=== PATIENT | male | born 1940 | race Caucasian/White ===

== ENCOUNTER 2023-08-27 05:47 | Emergency (ER) | payer MEDICARE, OTHER ==
[~2023-08-27] VITALS: Ht 177.8 cm; Wt 70.6 kg
[2023-08-27 07:02] VITALS: TEMP 98.4
[2023-08-27 07:42] LABS: BILIRUBIN,URINE NEGATIVE (Neg); CLARITY,URINE CLEAR (Clear); COLOR,URINE YELLOW (Yellow); GLUCOSE, URINE NEGATIVE (Neg); KETONES,URINE NEGATIVE (Neg); LEUKOCYTE ESTERASE ,URINE NEGATIVE (Neg); NITRITES, URINE NEGATIVE (Neg); OCCULT BLOOD,URINE MODERATE (Neg); PH,URINE 5.5 (4.8-8.0); PROTEIN,URINE NEGATIVE (Neg); UROBILINOGEN,URINE 0.2 E.U/dL (0.2-1.0)
[2023-08-27 07:54] LABS: UA COLLECTION TYPE STRAIGHT CATH
[2023-08-27 07:57] LABS: BACTERIA,URINE NONE SEEN /HPF (Neg); MUCUS STRANDS NONE SEEN /LPF (Neg); SQUAMOUS EPITHELIAL CELL,UR NONE SEEN /LPF (FEW); WBC,URINE 0-4 /HPF (0-4)
[2023-08-27 08:16] VITALS: BP 149/78; PULSE 88; RESP 14; O2SAT 99
[2023-08-27] MEDS ORDERED: FLO0.4C PO ×2 (21:36→22:45)
== END 2023-08-27 08:17 | disposition home or self-care (01) ==
LOC: ER 05:48
DX: N40.1 Benign prostatic hyperplasia with lower urinary tract symptoms (principal); R33.8 Other retention of urine
CPT/HCPCS: 81001; 99284; C1758

== ENCOUNTER 2023-08-27 18:35 | Emergency (ER) | payer MEDICARE, OTHER ==
[~2023-08-27] VITALS: Ht 182.9 cm; Wt 72.3 kg
[2023-08-27 18:43] VITALS: TEMP 98.5
[2023-08-27 19:45] LABS: BASOPHILS % (AUTO) 0.4 % (0-1); EOSINOPHILS # (AUTO) 0.1 X10'3 (0-0.9); EOSINOPHILS % (AUTO) 0.6 % (0-6); HEMOGLOBIN 15.6 g/dl (14.0-17.9); LYMPHOCYTES # (AUTO) 1.3 X10'3 (1.1-4.8); LYMPHOCYTES % (AUTO) 11.8 % (21-51); MEAN CORPUSCULAR HEMOGLOBIN 32.9 PG (27.0-31.0); MEAN CORPUSCULAR HGB CONC 33.9 g/dL (33.0-36.5); MEAN CORPUSCULAR VOLUME 97.2 FL (78-98); MEAN PLATELET VOLUME 8.7 FL (7.4-10.4); MONOCYTES # (AUTO) 0.8 X10'3 (0-0.9); MONOCYTES % (AUTO) 7.6 % (2-12); NEUTROPHILS # (AUTO) 8.9 X10'3 (1.8-7.7); NEUTROPHILS % (AUTO) 79.6 % (42-75); PLATELET COUNT 218 X10'3 (140-440); RED BLOOD COUNT 4.73 X10'6 (4.70-6.10); RED CELL DISTRIBUTION WIDTH 13.3 % (11.5-14.5); WHITE BLOOD COUNT 11.2 X10'3 (4.5-11.0)
[2023-08-27 19:55] LABS: APTT 24 SECONDS (22-32)
[2023-08-27 19:57] LABS: ALANINE AMINOTRANSFERASE 27 U/L (12-78); ALBUMIN 4.5 G/DL (3.4-5.0); ALBUMIN/GLOBULIN RATIO 1.5 (1.1-1.5); ALKALINE PHOSPHATASE 77 IU/L (46-116); ANION GAP 7 (8-16); ASPARTATE AMINO TRANSFERASE 21 U/L (10-37); BILIRUBIN,TOTAL 1.4 MG/DL (0.1-1.0); BLOOD UREA NITROGEN 18 MG/DL (7-18); BUN/CREATININE RATIO 14.6 (10.0-20.0); CALCIUM 9.4 MG/DL (8.5-10.1); CHLORIDE 104 MMOL/L (99-107); CREATININE 1.23 MG/DL (0.60-1.10); GLUCOSE 106 MG/DL (70-104); POTASSIUM 4.1 MMOL/L (3.5-5.1); SODIUM 139 MMOL/L (135-145); TOTAL CARBON DIOXIDE 27.8 MMOL/L (24-32); TOTAL PROTEIN 7.6 G/DL (6.4-8.2); eCRCL 47 ML/MIN; eGFR 56 ML/MIN
[2023-08-27 20:08] LABS: C-REACTIVE PROTEIN 0.92 MG/DL (0.0-0.5); PRO BRAIN NATRIURETIC PEPTIDE 106 PG/ML (0-450); THYROID STIMULATING HORMONE 3.68 ulU/ml (0.34-4.50)
[2023-08-27 20:12] LABS: ETHANOL < 10 MG/DL (<10)
[2023-08-27] MEDS: LidoCAINE 2% Topical Jelly 11mL syringe (UROJET) TOP ONE (21:34)
[2023-08-27] MEDS ORDERED: FLO0.4C PO ×2 (21:36→22:45)
[2023-08-27] MEDS: normal saline 1000ML IV soln IVB ONE (21:58)
[2023-08-27 22:23] LABS: URINE AMPHETAMINE SCREEN NEGATIVE (Neg); URINE BARBITUATE SCREEN NEGATIVE (Neg); URINE BENZODIAZEPINES SCREEN NEGATIVE (Neg); URINE CANNABINOID SCREEN NEGATIVE (Neg); URINE COCAINE SCREEN NEGATIVE (Neg); URINE METHADONE SCREEN NEGATIVE (Neg); URINE OPIATE SCREEN NEGATIVE (Neg); URINE PHENCYCLIDINE SCREEN NEGATIVE (Neg)
[2023-08-27 23:00] VITALS: BP 128/60; PULSE 72; RESP 17; O2SAT 97
[2023-08-27] MEDS: magnesium hydroxide 30ml (MOM) UD suspension PO ONE (23:02)
== END 2023-08-27 23:19 | disposition home or self-care (01) ==
LOC: ER 18:35
DX: R33.9 Retention of urine, unspecified (principal); K59.00 Constipation, unspecified; R41.82 Altered mental status, unspecified
CPT/HCPCS: 36415; 51702; 70450; 71045; 80053; 80305; 83605; 83880; 84145; 84439; 84443; 84484; 85025; 85610; 85651; 85730; 86140; 87040; 93005; 96360; 99285; A4314; G0480; J7030; 80320; 99284

== ENCOUNTER 2023-09-04 13:17 | Emergency (ER) | payer MEDICARE, OTHER ==
[~2023-09-04] VITALS: Ht 177.8 cm; Wt 66.4 kg
[~2023-09-04 13:17] MED LIST: FLO0.4C PO
[2023-09-04 13:27] VITALS: TEMP 97.7
[2023-09-04 15:00] LABS: BILIRUBIN,URINE NEGATIVE (Neg); CLARITY,URINE CLOUDY (Clear); COLOR,URINE YELLOW (Yellow); GLUCOSE, URINE NEGATIVE (Neg); KETONES,URINE NEGATIVE (Neg); LEUKOCYTE ESTERASE ,URINE SMALL (Neg); NITRITES, URINE NEGATIVE (Neg); OCCULT BLOOD,URINE LARGE (Neg); PROTEIN,URINE NEGATIVE (Neg); UROBILINOGEN,URINE 0.2 E.U/dL (0.2-1.0)
[2023-09-04 15:08] LABS: UA COLLECTION TYPE CLN CATCH MIDSTREAM
[2023-09-04 15:11] LABS: RBC,URINE 50-100 /HPF (0-2)
[2023-09-04 15:12] LABS: BACTERIA,URINE 4+ /HPF (Neg); MUCUS STRANDS NONE SEEN /LPF (Neg); SQUAMOUS EPITHELIAL CELL,UR FEW /LPF (FEW); WBC,URINE 50-100 /HPF (0-4)
[2023-09-04 15:26] VITALS: BP 144/81; PULSE 80; RESP 16; O2SAT 99
[2023-09-04] MEDS ORDERED: SULF1TAB49 PO (15:28)
[2023-09-05] MEDS ORDERED: CARB1TAB36 PO (07:29)
== END 2023-09-04 15:27 | disposition home or self-care (01) ==
LOC: ER 13:18
DX: N39.0 Urinary tract infection, site not specified (principal); R33.9 Retention of urine, unspecified; Z79.899 Other long term (current) drug therapy
CPT/HCPCS: 81001; 87077; 87088; 87186; 99283

== ENCOUNTER 2023-09-05 03:33 | Inpatient (IN) | payer MEDICARE, OTHER ==
[~2023-09-05] VITALS: Ht 177.8 cm; Wt 72.2 kg
[~2023-09-05 03:33] MED LIST changes: +SULF1TAB49 PO
[2023-09-05 04:03] LABS: BASOPHILS % (AUTO) 0.3 % (0-1); EOSINOPHILS % (AUTO) 0.1 % (0-6); HEMATOCRIT 39.8 % (42.0-52.0); HEMOGLOBIN 13.5 g/dl (14.0-17.9); LYMPHOCYTES # (AUTO) 0.1 X10'3 (1.1-4.8); LYMPHOCYTES % (AUTO) 1.9 % (21-51); MEAN CORPUSCULAR HEMOGLOBIN 33.1 PG (27.0-31.0); MEAN CORPUSCULAR HGB CONC 33.9 g/dL (33.0-36.5); MEAN CORPUSCULAR VOLUME 97.7 FL (78-98); MEAN PLATELET VOLUME 8.2 FL (7.4-10.4); MONOCYTES # (AUTO) 0.1 X10'3 (0-0.9); MONOCYTES % (AUTO) 0.9 % (2-12); NEUTROPHILS % (AUTO) 96.8 % (42-75); PLATELET COUNT 226 X10'3 (140-440); RED BLOOD COUNT 4.08 X10'6 (4.70-6.10); RED CELL DISTRIBUTION WIDTH 13.3 % (11.5-14.5); WHITE BLOOD COUNT 7.2 X10'3 (4.5-11.0)
[2023-09-05] MEDS: acetaminophen 325mg tablet PO ONE (04:06)
[2023-09-05 04:31] LABS: BILIRUBIN,URINE NEGATIVE (Neg); CLARITY,URINE SLIGHTLY CLOUDY (Clear); COLOR,URINE YELLOW (Yellow); GLUCOSE, URINE NEGATIVE (Neg); KETONES,URINE NEGATIVE (Neg); LEUKOCYTE ESTERASE ,URINE TRACE (Neg); NITRITES, URINE NEGATIVE (Neg); OCCULT BLOOD,URINE LARGE (Neg); PROTEIN,URINE NEGATIVE (Neg); UROBILINOGEN,URINE 0.2 E.U/dL (0.2-1.0)
[2023-09-05 04:35] LABS: UA COLLECTION TYPE FOLEY CATH
[2023-09-05 04:38] LABS: BACTERIA,URINE 4+ /HPF (Neg); MUCUS STRANDS NONE SEEN /LPF (Neg); RENAL CELLS, URINE FEW /HPF; SQUAMOUS EPITHELIAL CELL,UR FEW /LPF (FEW)
[2023-09-05 04:39] LABS: RBC,URINE 20-50 /HPF (0-2)
[2023-09-05] MEDS: ringers solution, lacted 1,000 ML IV ONE (04:45)
[2023-09-05 05:10] LABS: ALBUMIN 3.2 G/DL (3.4-5.0); ANION GAP 10 (8-16); BLOOD UREA NITROGEN 18 MG/DL (7-18); BUN/CREATININE RATIO 12.7 (10.0-20.0); CALCIUM 8.3 MG/DL (8.5-10.1); CHLORIDE 104 MMOL/L (99-107); CREATININE 1.42 MG/DL (0.60-1.10); GLUCOSE 110 MG/DL (70-104); MAGNESIUM 1.4 MG/DL (1.5-2.4); POTASSIUM 3.4 MMOL/L (3.5-5.1); SODIUM 140 MMOL/L (135-145); eCRCL 35 ML/MIN; eGFR 48 ML/MIN
[2023-09-05] MEDS ORDERED: acetaminophen 325mg tablet PO PRN (05:45)
[2023-09-05] MEDS ORDERED: magnesium 4gm in 100ml NS 100 ML IV PRN (05:45)
[2023-09-05] MEDS ORDERED: morphine 2 MG/ML inj. syringe IV PRN (05:45)
[2023-09-05] MEDS ORDERED: ondansetron/PF 4mg/2ml inj IV PRN (05:45)
[2023-09-05] MEDS ORDERED: magnesium 2GM in 50ml NS 50 ML IV PRN (05:45)
[2023-09-05] MEDS ORDERED: potassium Cl 40MEQ/1/2NS 520ml 520 ML IV PRN (05:45)
[2023-09-05] MEDS ORDERED: magnesium Cl slow-release 64mg tablet PO PRN (05:45)
[2023-09-05] MEDS ORDERED: mag hydrox/Alum hydrox/simeth 30ml oral suspension PO PRN (05:45)
[2023-09-05] MEDS ORDERED: potassium Cl 20 mEq SR tablet PO PRN (05:45)
[2023-09-05] MEDS ORDERED: magnesium hydroxide 30ml (MOM) UD suspension PO PRN (05:45)
[2023-09-05] MEDS: CefTRIAXone/D5W-Rocephin 1gm 50 ML IV ONE (05:52)
[2023-09-05] MEDS: normal saline 1000ml 1,000 ML IV SCH (06:10)
[2023-09-05] MEDS: magnesium 2GM in 50ml NS 50 ML IV ONE (06:46)
[2023-09-05] MEDS: potassium Cl 20 mEq SR tablet PO PRN (06:47)
[2023-09-05] MEDS ORDERED: CARB1TAB36 PO (07:29)
[2023-09-05] MEDS: K and/or MAG REPLACEMENT MC SCH (07:38)
[2023-09-05 07:44] LABS: HEMOGLOBIN A1C 5.4 % (4.5-6.2)
[2023-09-05 08:00] LABS: PHOSPHORUS 0.8 MG/DL (2.3-4.5)
[2023-09-05] MEDS: heparin, porcine 5000 units/ml vial SQ SCH (08:13)
[2023-09-05] MEDS: docusate sod 100mg capsule PO SCH (08:14)
[2023-09-05] MEDS: Neutra Phos packet PO SCH (08:51)
[2023-09-05 12:00] VITALS: BP 98/43; PULSE 81; RESP 16; TEMP 98; O2SAT 96
[2023-09-05 12:30] VITALS: RESP 16; O2SAT 96
[2023-09-05] MEDS: carbidoba-levodopa 25-100mg tablet PO SCH (13:38)
[2023-09-05 18:00] VITALS: BP 97/51; PULSE 76; RESP 15; TEMP 97.2; O2SAT 96
[2023-09-05 22:00] VITALS: BP 104/47; PULSE 72; RESP 16; TEMP 97.7; O2SAT 93
[2023-09-06] MEDS: CefTRIAXone/D5W-Rocephin 1gm 50 ML IV SCH (05:38)
[2023-09-06 06:24] VITALS: BP 104/51; PULSE 77; RESP 16; TEMP 97.9; O2SAT 95
[2023-09-06 07:10] LABS: BASOPHILS % (AUTO) 0.2 % (0-1); EOSINOPHILS # (AUTO) 0.1 X10'3 (0-0.9); EOSINOPHILS % (AUTO) 0.5 % (0-6); HEMATOCRIT 35.5 % (42.0-52.0); HEMOGLOBIN 11.9 g/dl (14.0-17.9); LYMPHOCYTES # (AUTO) 0.6 X10'3 (1.1-4.8); LYMPHOCYTES % (AUTO) 2.9 % (21-51); MEAN CORPUSCULAR HEMOGLOBIN 32.8 PG (27.0-31.0); MEAN CORPUSCULAR HGB CONC 33.5 g/dL (33.0-36.5); MEAN PLATELET VOLUME 8.6 FL (7.4-10.4); MONOCYTES # (AUTO) 0.8 X10'3 (0-0.9); MONOCYTES % (AUTO) 4.1 % (2-12); NEUTROPHILS # (AUTO) 18.8 X10'3 (1.8-7.7); NEUTROPHILS % (AUTO) 92.3 % (42-75); PLATELET COUNT 160 X10'3 (140-440); RED BLOOD COUNT 3.62 X10'6 (4.70-6.10); RED CELL DISTRIBUTION WIDTH 13.6 % (11.5-14.5); WHITE BLOOD COUNT 20.4 X10'3 (4.5-11.0)
[2023-09-06 07:37] LABS: ALANINE AMINOTRANSFERASE 15 U/L (12-78); ALBUMIN 2.5 G/DL (3.4-5.0); ALBUMIN/GLOBULIN RATIO 0.9 (1.1-1.5); ALKALINE PHOSPHATASE 48 IU/L (46-116); ANION GAP 7 (8-16); ASPARTATE AMINO TRANSFERASE 23 U/L (10-37); BILIRUBIN,TOTAL 0.6 MG/DL (0.1-1.0); BLOOD UREA NITROGEN 21 MG/DL (7-18); BUN/CREATININE RATIO 19.1 (10.0-20.0); CHLORIDE 109 MMOL/L (99-107); CHOL/HDL RATIO 1.7 (0.00-4.99); CHOLESTEROL 86 MG/DL (0-200); GLUCOSE 92 MG/DL (70-104); HDL CHOLESTEROL 52 MG/DL (35-60); LDL CHOLESTEROL 26 MG/DL (50-100); POTASSIUM 4.4 MMOL/L (3.5-5.1); SODIUM 139 MMOL/L (135-145); TOTAL PROTEIN 5.2 G/DL (6.4-8.2); TRIGLYCERIDES 35 MG/DL (20-135); eCRCL 45 ML/MIN; eGFR 64 ML/MIN
[2023-09-06] MEDS: tamsulosin 0.4mg capsule PO SCH (07:38)
[2023-09-06 07:48] LABS: BURR CELLS FEW; PLATELET ESTIMATE NORMAL; TOTAL CELLS COUNTED 100
[2023-09-06 08:00] VITALS: RESP 16; O2SAT 96
[2023-09-06 10:00] VITALS: BP 106/51; PULSE 80; RESP 15; TEMP 98.1; O2SAT 95
[2023-09-06 18:00] VITALS: BP 123/62; PULSE 80; RESP 16; TEMP 97.9; O2SAT 98
[2023-09-06 22:00] VITALS: BP 133/76; PULSE 74; RESP 16; TEMP 98.1; O2SAT 97
[2023-09-07 06:44] VITALS: BP 120/79; PULSE 70; RESP 16; TEMP 97.5; O2SAT 98
[2023-09-07 06:58] LABS: BASOPHILS % (AUTO) 0.3 % (0-1); EOSINOPHILS # (AUTO) 0.2 X10'3 (0-0.9); EOSINOPHILS % (AUTO) 1.4 % (0-6); HEMATOCRIT 35.1 % (42.0-52.0); HEMOGLOBIN 11.7 g/dl (14.0-17.9); LYMPHOCYTES # (AUTO) 0.6 X10'3 (1.1-4.8); LYMPHOCYTES % (AUTO) 4.9 % (21-51); MEAN CORPUSCULAR HEMOGLOBIN 32.6 PG (27.0-31.0); MEAN CORPUSCULAR HGB CONC 33.4 g/dL (33.0-36.5); MEAN CORPUSCULAR VOLUME 97.6 FL (78-98); MEAN PLATELET VOLUME 8.8 FL (7.4-10.4); MONOCYTES # (AUTO) 0.6 X10'3 (0-0.9); MONOCYTES % (AUTO) 4.8 % (2-12); NEUTROPHILS # (AUTO) 10.6 X10'3 (1.8-7.7); NEUTROPHILS % (AUTO) 88.6 % (42-75); PLATELET COUNT 164 X10'3 (140-440); RED BLOOD COUNT 3.59 X10'6 (4.70-6.10); RED CELL DISTRIBUTION WIDTH 13.6 % (11.5-14.5)
[2023-09-07 07:22] LABS: ALANINE AMINOTRANSFERASE 11 U/L (12-78); ALBUMIN 2.3 G/DL (3.4-5.0); ALBUMIN/GLOBULIN RATIO 0.8 (1.1-1.5); ALKALINE PHOSPHATASE 57 IU/L (46-116); ANION GAP 9 (8-16); ASPARTATE AMINO TRANSFERASE 18 U/L (10-37); BILIRUBIN,TOTAL 0.4 MG/DL (0.1-1.0); BLOOD UREA NITROGEN 16 MG/DL (7-18); BUN/CREATININE RATIO 15.5 (10.0-20.0); CALCIUM 7.8 MG/DL (8.5-10.1); CHLORIDE 108 MMOL/L (99-107); CREATININE 1.03 MG/DL (0.60-1.10); GLUCOSE 98 MG/DL (70-104); POTASSIUM 4.2 MMOL/L (3.5-5.1); SODIUM 141 MMOL/L (135-145); TOTAL CARBON DIOXIDE 24.5 MMOL/L (24-32); TOTAL PROTEIN 5.2 G/DL (6.4-8.2); eCRCL 55 ML/MIN; eGFR 69 ML/MIN
[2023-09-07 08:00] VITALS: RESP 16; O2SAT 98
[2023-09-07 10:17] VITALS: BP 115/56; PULSE 69; RESP 16; TEMP 99.2; O2SAT 96
[2023-09-07] MEDS ORDERED: LACT-294 PO (11:52)
[2023-09-07] MEDS ORDERED: CIPR-259 PO (11:52)
== END 2023-09-07 15:45 | disposition home or self-care (01) | DRG 871 ==
LOC: ER 03:34 → ED HOLD 05:49 → ORTHO 4S 11:45
PROVIDERS: ADMIT Internal Medicine Sleep Medicine; ATTEND Internal Medicine
DX: A41.9 Sepsis, unspecified organism (principal); N17.0 Acute kidney failure with tubular necrosis; N39.0 Urinary tract infection, site not specified; N13.9 Obstructive and reflux uropathy, unspecified; E87.6 Hypokalemia; E83.42 Hypomagnesemia; G20.A1 Parkinson's disease without dyskinesia, without mention of fluctuations; R33.8 Other retention of urine; N40.1 Benign prostatic hyperplasia with lower urinary tract symptoms; N20.0 Calculus of kidney; Z79.899 Other long term (current) drug therapy
CPT/HCPCS: 36415; 51701; 76700; 80048; 80053; 80061; 81001; 83036; 83605; 83735; 84100; 84145; 85007; 85025; 87040; 87077; 87081; 87088; 87186; 93005; 96360; 97161; 97530; 99283; 99285; A4314; A4358; G0378; J0696; J1644; J3475; J7030; J7120